=== PATIENT | female | born 1985 | race Caucasian/White ===

== ENCOUNTER → 2018-09-15 11:07 | Outpatient (CLI) | payer OTHER, SELFPAY ==
[2018-09-15 13:31] LABS: Chlamydia Trachomatis by PCR POSITIVE (Negative)
[2018-09-15 13:32] LABS: Neisserai gonorrhoeae by PCR Negative (Negative); Probe Check PASS
[2018-09-19 16:46] LABS: HPV APTIMA, High Risk Positive (Negative)
== END ==
PROVIDERS: Visit Provider Obstetrics & Gynecology
DX: Z12.4 Encounter for screening for malignant neoplasm of cervix (principal); Z11.3 Encounter for screening for infections with a predominantly sexual mode of transmission
CPT/HCPCS: 87491; 87591; 88175; G0145

== ENCOUNTER → 2018-10-06 15:48 | Outpatient (CLI) | payer OTHER, SELFPAY ==
[2018-10-06 17:42] LABS: Absolute Neutrophil Count 7.2 X10^3/uL (2.0-7.7); Basophil# 0.01 X10^3/uL; Basophil% 0.1 % (0-1); Eosinophil# 0.03 X10^3/uL; Eosinophils% 0.3 % (0-5); Hematocrit 37.1 % (37-47); Hemoglobin 12.7 g/dl (12.0-15.0); Mean Corp Hgb Conc 34.2 g/gl (32-36); Mean Corpuscular Hgb 31.8 pg (27.0-32.0); Mean Platelet Vol. 10.1 fl (6.2-12.0); Monocyte% 7.7 % (0-10); Neutrophil # 7.18 X10^3/uL (2.7-7.7); Neutrophil % 68.7 % (47-70); Platelet Count 209 K/mm3 (150-450); RBC Distribution Width CV 12.2 % (11.6-14.6); RBC Distribution Width SD 40.5 fl (35.1-43.9); Red Blood Count 3.99 M/mm3 (4.2-5.4); White Blood Count 10.4 K/mm3 (4.4-11.0)
[2018-10-06 17:44] LABS: POSITIVE COUNT NO; POSITIVE DIFFERENTIAL NO; POSITIVE MORPHOLOGY NO
[2018-10-06 17:47] LABS: Color, Urine Yellow (Yellow); Glucose, Dipstick Normal (Normal); Ketone-Dipstick Negative (Negative); Leukocyte Esterase-Dipstick Negative /ul (Negative); Nitrite-Dipstick Negative (Negative); Occult Blood-Urine Negative /ul (Negative); Protein-Dipstick Negative (Negative); Specific Gravity, Urine 1.025 (1.002-1.030); Urine Bilirubin Dipstick Negative (Negative); Urine Clarity Clear (Clear); Urine Urobilinogen Normal (Normal)
[2018-10-06 17:50] LABS: Amphetamine Urine VISTA NEGATIVE (<1000 ng/mL); Barbiturate Urine VISTA NEGATIVE (< 200 ng/mL); Benzodiazepine Urine VISTA NEGATIVE (< 200 ng/mL); Cocaine Urine VISTA NEGATIVE (< 300 ng/mL); Ecstacy Urine VISTA NEGATIVE (< 500 ng/mL); Methadone Urine VISTA NEGATIVE (< 300 ng/mL); PCP Urine VISTA NEGATIVE (< 25 ng/mL); THC Urine VISTA NEGATIVE (< 50 ng/mL); Vista UDS pH Range 6
[2018-10-06 17:57] LABS: Thyroid Stim Hormone (TSH) 1.01 uIU/mL (0.358-3.74)
[2018-10-06 18:39] LABS: HIV - WCH Non-Reactive (Nonreactive); Rubella IgG 36.8 IU/mL
[2018-10-07 01:11] LABS: Prenatal RPR NONREACTIVE (NONREACTIVE)
[2018-10-10 09:16] LABS: HEPATITIS B SURFACE AG Negative (Negative); Hep C Antibodies <0.1 s/co ratio (0.0-0.9)
== END ==
LOC: WOBLAB 15:48
PROVIDERS: Visit Provider Obstetrics & Gynecology
DX: Z34.81 Encounter for supervision of other normal pregnancy, first trimester (principal)
CPT/HCPCS: 36415; 80307; 81002; 84443; 85025; 86703; 86762; 86803; 87340

== ENCOUNTER 2018-11-04 09:53 | Day surgery (SDC) | payer OTHER, MEDICAID, SELFPAY ==
[2018-11-04 10:23] VITALS: BP 113/62; PULSE 83; RESP 14; TEMP 37.7; O2SAT 100; BMI 20.7
[2018-11-04 10:31] LABS: Hematocrit 44.9 % (37-47); Hemoglobin 14.7 g/dl (12.0-15.0); Mean Corp Hgb Conc 32.7 g/gl (32-36); Mean Corpuscular Hgb 30.8 pg (27.0-32.0); Mean Corpuscular Volume 93.9 fL (81-99); Mean Platelet Vol. 9.8 fl (6.2-12.0); Platelet Count 202 K/mm3 (150-450); RBC Distribution Width CV 12.5 % (11.6-14.6); RBC Distribution Width SD 43.3 fl (35.1-43.9); Red Blood Count 4.78 M/mm3 (4.2-5.4); White Blood Count 9.4 K/mm3 (4.4-11.0)
[2018-11-04 10:33] LABS: Scan Indicated on CBC? Y/N NO
--- NOTE | 2018-11-04 12:00 | POC_PTH ---
PATIENT: MEL VILLAR [place] [facility] [id number] AGE/SX: 32/F ROOM: RE11/04/[address]: Dr. Slava Hickman MD : 1985 BED: DIS: 11/04/2018 SPEC #: [id number] RECD: 11/04/18 13:59 STATUS: EULOGIO LAST #: [id number] CRISTHIAN: 11/04/18 12:[address]: Slava Hickman DEPT: SURGICAL PATHOLOGY RECD BY: Lupe Scott ENTERED: 11/04/18 14:46 SP TYPE: PROD CONC OTHR DR: No Primary Care Phys Tissues: Product of conception, NOS Procedures: Surgery Specimen Level IV HEADER OPERATION: Suction dilation and curettage PRE-OP DIAGNOSIS: Inevitable miscarriage TISSUE SUBMITTED: Products of conception MICROSCOPIC DIAGNOSIS Products of conception: [place], immature chorionic villi and tissue (products of conception). SJ:kathy 2/25/19 MICROSCOPIC DESCRIPTION Slides are reviewed. GROSS DESCRIPTION Received in fixative is one container labeled with the patient's name and designated products of conception. The specimen consists of multiple fragments of pink-red soft tissue that in aggregate measure 7 x 7 x 2 cm. A few macerated parts are also noted. Preparation Plant Supervisor tissue is submitted in two cassettes. Cassette 2 also contains the tissue. / SJ:kathy 11/04/18 TC:5 CPT: 97766
--- NOTE | 2018-11-04 12:37 | PCM.OPRPT ---
Report of Operation Date of Procedure: 11/04/18 Pre-Operative Diagnosis: Inevitable Miscarriage Post-Operative Diagnosis: Inevitable Miscarriage Surgery/Procedure Performed:: Suction Dilation and Evacuation Description of Surgical Findings:: 10 cm endometrial cavity with products of conception present. Type of Anesthesia:: MAC Anesthesiologist: Ovi Greer Specimen's removed: Products of conception Estimated Blood Loss (mL): Minimal Fluids Replaced: Crystalloid Description of Procedure: Surgeon: Slava Hickman MD, FACOG Indication: 32 Year old patient with incomplete AB at 12+ weeks gestation with a 9+ week IUP without FHTs. Pt has been counseled re RBAs and all questions answered. Procedure: Pt taken to the OR where she was given IV sedation. The patient was prepped and draped in the usual sterile fashion. Anterior cervix grasped and cervix dilated to 10mm. An 9 mm suction curette was inserted into the cervix and all contents removed. Uterus was gently curetted and remaining tissue removed. Pt tolerated the procedure well and was taken to the recovery room in satisfactory condition. Sponge, instruments and needle counts were all correct. There were no apparent complications of the surgery. Grafts/Implants Used: None - Complications None - Admit VTE Documentation VTE Present on Admission: Yes VTE Mechan Device Prophylaxis: SCD's VTE Pharm Prophylaxis ordered?: No Reason prophylaxis not ordered:: Treatment Not Indicated
--- NOTE | 2018-11-04 12:41 | OP.PCM_ITS ---
Report of Operation Date of Procedure: 11/04/18 Pre-Operative Diagnosis: Inevitable Miscarriage Post-Operative Diagnosis: Inevitable Miscarriage Surgery/Procedure Performed:: Suction Dilation and Evacuation Description of Surgical Findings:: 10 cm endometrial cavity with products of conception present. Type of Anesthesia:: MAC Anesthesiologist: Ovi Greer Specimen's removed: Products of conception Estimated Blood Loss (mL): Minimal Fluids Replaced: Crystalloid Description of Procedure: Surgeon: Slava Hickman MD, FACOG Indication: 32 Year old patient with incomplete AB at 12+ weeks gestation with a 9+ week IUP without FHTs. Pt has been counseled re RBAs and all questions answered. Procedure: Pt taken to the OR where she was given IV sedation. The patient was prepped and draped in the usual sterile fashion. Anterior cervix grasped and cervix dilated to 10mm. An 9 mm suction curette was inserted into the cervix and all contents removed. Uterus was gently curetted and remaining tissue removed. Pt tolerated the procedure well and was taken to the recovery room in sat isfactory condition. Sponge, instruments and needle counts were all correct. There were no apparent complications of the surgery. Grafts/Implants Used: None - Complications None - Admit VTE Documentation VTE Present on Admission: Yes VTE Mechan Device Prophylaxis: SCD's VTE Pharm Prophylaxis ordered?: No Reason prophylaxis not ordered:: Treatment Not Indicated
--- NOTE | 2018-11-04 12:42 | DCINST_ITS ---
Discharge Diet: No Restrictions Discharge Activity: Return to Normal Activity, May Shower, May Take a Tub Bath May resume sexual activity in: 2 weeks Call your doctor if you observe: Fever of 101 or Higher, Inability to urinate, Inability to have a bowel movement, Using more than one pad per hour Allergies/Adverse Reactions: Allergies No Known Allergies Allergy (Verified 11/04/18 10:17) Primary Care Physician: Care Physician,No Primary [Primary Care Provider] - Test Results: Test results from this visit will be discussed in further detail at your follow- up appointment, if applicable. Please Follow Up With: Slava Hickman MD When: 2-3 weeks
[2018-11-04 13:10] VITALS: BP 113/62; BP 116/69; PULSE 99; RESP 16; TEMP 36.5; O2SAT 96
[2018-11-04 13:15] VITALS: BP 113/62; BP 116/69; PULSE 78; RESP 16; O2SAT 99
[2018-11-04 13:20] VITALS: BP 108/64; BP 113/62; PULSE 82; RESP 16; O2SAT 97
[2018-11-04 13:28] VITALS: BP 113/62
[2018-11-04 13:34] VITALS: BP 102/68; BP 113/62; PULSE 82; RESP 16; TEMP 36.4; O2SAT 97
== END 2018-11-04 15:55 | disposition home or self-care (01) ==
LOC: SDC 09:58 → AC 09:59
PROVIDERS: Referring Provider Obstetrics & Gynecology; Visit Provider Obstetrics & Gynecology
PROC: (CPT 59812; principal; 2018-11-04 11:45)
DX: O03.4 Incomplete spontaneous abortion without complication (principal); J45.909 Unspecified asthma, uncomplicated; Z87.891 Personal history of nicotine dependence
CPT/HCPCS: 59812; 85027; 86850; 86900; 88305; J7120; J2405

== ENCOUNTER → 2019-04-06 17:20 | Outpatient (CLI) | payer OTHER, MEDICAID, SELFPAY ==
[2019-04-06 21:09] LABS: Chlamydia Trachomatis by PCR Negative (Negative); Neisserai gonorrhoeae by PCR Negative (Negative); Probe Check PASS; Sample Adequacy Control PASS; Specimen Processing Control PASS
== END ==
PROVIDERS: Referring Provider Obstetrics & Gynecology; Visit Provider Obstetrics & Gynecology
DX: R30.0 Dysuria (principal); R35.0 Frequency of micturition; Z11.3 Encounter for screening for infections with a predominantly sexual mode of transmission
CPT/HCPCS: 87086; 87088; 87491; 87591

== ENCOUNTER → 2019-07-12 16:52 | Outpatient (CLI) | payer OTHER, SELFPAY ==
[2019-07-12 20:19] LABS: Chlamydia Trachomatis by PCR Negative (Negative); Neisserai gonorrhoeae by PCR Negative (Negative); Probe Check PASS; Sample Adequacy Control PASS; Specimen Processing Control PASS
== END ==
PROVIDERS: Visit Provider Obstetrics & Gynecology
DX: Z11.3 Encounter for screening for infections with a predominantly sexual mode of transmission (principal)
CPT/HCPCS: 87491; 87591

== ENCOUNTER → 2019-08-18 15:43 | Outpatient (CLI) | payer OTHER, MEDICAID, SELFPAY ==
[2019-08-18 17:28] LABS: Absolute Lymphocyte Count 1.76 X10^3/uL (0.83-4.51); Absolute Neutrophil Count 8.6 X10^3/uL (2.0-7.7); Basophil# 0.02 X10^3/uL; Basophil% 0.2 % (0-1); Eosinophil# 0.03 X10^3/uL; Eosinophils% 0.3 % (0-5); Hematocrit 37.6 % (37-47); Hemoglobin 12.7 g/dL (12.0-15.0); Lymphocyte # 1.76 X10^3/ul (4.0); Lymphocyte % 15.8 % (19-41); Mean Corp Hgb Conc 33.8 g/dL (32-36); Mean Corpuscular Hgb 31.1 pg (27.0-32.0); Mean Corpuscular Volume 91.9 fL (81-99); Mean Platelet Vol. 9.6 fl (6.2-12.0); Monocyte# 0.69 X10^3/uL; Monocyte% 6.2 % (0-10); NRBC Flagged by Analyzer 0 % (0-5); Neutrophil # 8.59 X10^3/uL (2.7-7.7); Neutrophil % 77.2 % (47-70); Platelet Count 210 K/mm3 (150-450); RBC Distribution Width CV 11.7 % (11.6-14.6); RBC Distribution Width SD 39.5 fl (35.1-43.9); Red Blood Count 4.09 M/mm3 (4.2-5.4); White Blood Count 11.1 K/mm3 (4.4-11.0)
[2019-08-18 17:49] LABS: Color, Urine Yellow (Yellow); Glucose, Dipstick 100 mg/dl (Normal); Ketone-Dipstick Negative (Negative); Leukocyte Esterase-Dipstick Negative /ul (Negative); Nitrite-Dipstick Negative (Negative); Occult Blood-Urine 10 /ul (Negative); Protein-Dipstick 15 mg/dl (Negative); Specific Gravity, Urine 1.025 (1.002-1.030); Urine Bilirubin Dipstick Negative (Negative); Urine Clarity Clear (Clear); Urine Urobilinogen Normal (Normal)
[2019-08-18 17:56] LABS: Amphetamine Urine VISTA NEGATIVE (<1000 ng/mL); Barbiturate Urine VISTA NEGATIVE (< 200 ng/mL); Benzodiazepine Urine VISTA NEGATIVE (< 200 ng/mL); Cocaine Urine VISTA NEGATIVE (< 300 ng/mL); Ecstacy Urine VISTA NEGATIVE (< 500 ng/mL); Methadone Urine VISTA NEGATIVE (< 300 ng/mL); PCP Urine VISTA NEGATIVE (< 25 ng/mL); THC Urine VISTA NEGATIVE (< 50 ng/mL); Vista UDS pH Range 5
[2019-08-21 10:31] LABS: HIV - WCH Non-Reactive (Nonreactive); Hepatitis B Surface Antigen Non-Reactive (Nonreactive); Hepatitis C Antibody Non-Reactive (Nonreactive); Rubella IgG 34.3 IU/mL
[2019-08-24 01:49] LABS: Prenatal RPR NONREACTIVE (NONREACTIVE)
== END ==
PROVIDERS: Visit Provider Obstetrics & Gynecology
DX: Z34.81 Encounter for supervision of other normal pregnancy, first trimester (principal)
CPT/HCPCS: 36415; 80307; 81002; 84443; 85025; 86703; 86762; 86803; 87340

== ENCOUNTER → 2020-01-25 | Outpatient (CLI) | payer OTHER, MEDICAID, SELFPAY | END | disposition home or self-care (01) | LOC: LABSPEC 15:16 | PROVIDERS: Referring Provider Obstetrics & Gynecology; Visit Provider Obstetrics & Gynecology | DX: Z36.85 Encounter for antenatal screening for Streptococcus B (principal) | CPT/HCPCS: 87081 ==

== ENCOUNTER 2020-02-18 23:10 | Inpatient (IN) | payer OTHER, MEDICAID, SELFPAY ==
[2020-02-18 22:57] VITALS: BP 141/84; PULSE 108
[2020-02-18 22:59] VITALS: BP 141/84; PULSE 108; TEMP 36.7; O2SAT 98
[2020-02-18] MEDS: Lactated Ringers 1,000 ML 999 ML IV (23:25)
[2020-02-18 23:40] VITALS: BMI 27.6
[2020-02-18 23:50] LABS: Absolute Lymphocyte Count 2.11 X10^3/uL (0.83-4.51); Absolute Neutrophil Count 12.7 X10^3/uL (2.0-7.7); Basophil# 0.02 X10^3/uL; Basophil% 0.1 % (0-1); Eosinophil# 0.05 X10^3/uL; Eosinophils% 0.3 % (0-5); Hematocrit 36.1 % (37-47); Hemoglobin 12.2 g/dL (12.0-15.0); Lymphocyte # 2.11 X10^3/ul (4.0); Lymphocyte % 13.1 % (19-41); Mean Corp Hgb Conc 33.8 g/dL (32-36); Mean Corpuscular Hgb 31.1 pg (27.0-32.0); Mean Corpuscular Volume 92.1 fL (81-99); Mean Platelet Vol. 10.1 fl (6.2-12.0); Monocyte# 1.15 X10^3/uL; Monocyte% 7.1 % (0-10); NRBC Flagged by Analyzer 0 % (0-5); Neutrophil % 78.8 % (47-70); Platelet Count 180 K/mm3 (150-450); RBC Distribution Width CV 12.2 % (11.6-14.6); RBC Distribution Width SD 40.8 fl (35.1-43.9); Red Blood Count 3.92 M/mm3 (4.2-5.4); White Blood Count 16.1 K/mm3 (4.4-11.0)
[2020-02-19] VITALS (18 sets, daily range): BP systolic 101–135; BP diastolic 35–79; PULSE 92–111; RESP 12–18; TEMP 36.4–37.1; O2SAT 94–98
--- NOTE | 2020-02-19 00:06 | HP.PCM_ITS ---
- Problem List (1) 39 weeks gestation of Status: Acute History Date of Admission: 02/19/20 Final SAGE: 02/23/20 Gestational age: 39 Weeks and 3 Days History of this : This is a 34 year-old, G [3], P [1011], at 39 3/7 weeks gestational age with c/o painful contractions. hx prior section and is scheduled for repeat. Medical History: Medical History (Last Updated 02/19/20 @ 01:[address] Jaye Lackey MD) Anxiety F41.9 Surgical History: Surgical History (Last Updated 02/19/20 @ 00:[address] Jaye Lackey MD) H/O LEEP Z98.890 complicated by bleeding requiring reoperation H/O dilation and curettage Z98.890 Previous section Z98.891 Allergies No Known Allergies Allergy (Verified 11/04/18 10:17) Home Medications: Home Medications Acetaminophen [Tylenol] 325 mg PO PRN PRN 02/18/20 Calcium Carbonate [Tums] 200 mg PO PRN PRN 02/18/20 Vits [Prenatabs FA] 1 tab PO DAILY 02/18/20 Smoking Status: Former smoker Alcohol: None Number of Fetus(es): 1 NST - FHR Rate Baby A Baseline: 135 Accelerations:: 15 x 15 Decelerations:: None NST Reactive:: Yes FHR Category:: Category I Uterine Activity:: 1-2/10 min History Past Pregnancies: Past Pregnancies Delivery Date Name GA/ Weeks Outcome Route Wt Infant Sex Labor Length Anesthesia Delivery Location Provider FOB 01/2006 39 distress, face presentation LTCS 7lb8oz M 12 Epidural [facility] 10/2019 9 SAB D&C [facility] Labs: Mom's Problem List Problem Status Onset Code 39 weeks gestation of Acute Z3A.39 Mom's Labs & Results 02/18/20 02/18/20 23:25 23:25 WBC 16.1 H RBC 3.92 L Hgb 12.2 Hct 36.1 L MCV 92.1 MCH 31.1 MCHC 33.8 RDW Std Deviation 40.8 RDW Coeff of Koko 12.2 Plt Count 180 MPV 10.1 Immature Gran % (Auto) 0.600 Neut % (Auto) 78.8 H Lymph % (Auto) 13.1 L [place] % (Auto) 7.1 Eos % (Auto) 0.3 Baso % (Auto) 0.1 Absolute Neuts (auto) 12.7 H Absolute Lymphs (auto) 2.11 Nucleated RBC % 0 Blood Type Pending Antibody Screen Pending Course Did the patient receive Yes care? Labs Blood Type: O RH: NEGATIVE RPR/VDRL/Syphilis Nonreactive Rubella status Immune HbSAg Negative Date Done: 08/18/19 Chlamydia Negative Gonorrhea Negative HIV/AIDS Non-Reactive Group B Strep: Negative Social History Hx Smoking Yes Smoking Status Former smoker Expected Infant Delivery Method: DAE Section Number of Visits: 14 Physical Exam Vitals: Vital Signs Pulse BP 108 H 141/84 H 02/18/20 22:57 02/18/20 22:57 General: Alert, Oriented x3, Cooperative, No apparent distress HEENT: Atraumatic, Normocephalic Cardiovascular: Regular rate, Regular Rhythm, Normal S1, Normal S2 Lungs: Clear to auscultation, Normal air movement Abdomen: Soft, Non Tender, Non-Distended, Gravid Extremities:: No edema Neurological: Neuro grossly intact PRESS SETTER: Normal external genitalia Estimated gestational size: Appropriate for gestational size Presentation: Cephalic Cervix Dilation (cm): 3 Station: -2 Effacement (%): 90 - per ZANDRA Weller exam Assessment/Plan All Active Problems 39 weeks gestation of (Acute) This is a 34 year-old, G [3], P [1011], at 39 3/7 weeks gestational age, hx prior section -Reviewed with patient procedural r/b/i/a. Declines trial of labor. No plans for sterilization. -Proceed with section as planned Procedure Criteria Procedure Type: Essential Procedure Essential: Yes Criteria Statement: On 11/28/2019 the [facility] of Health ([facility]) Public Order signed by [facility] Director Yesi Bean M.D., regarding the Management of Non-Essential Surgeries and Procedures for the purpose of preserving Personal Protective Equipment (PPE) and critical hospital capacity and resources within [place] went into effect as of 11/29/2019 at 5:00PM. According to the [facility] Public Order: This action will remain in full force and effect until the State of Emergency declared by the Governor no longer exists or the Director of the [facility] rescinds or modifies this Order. This OD order stated all non-essential or elective surgeries and procedures that utilize PPE should be delayed unless there is undue risk to the current or future health of a patient. After reviewing the aforementioned [facility] Public Order and the patient's clinical case, I have determined that the scheduled procedure meets the criteria to go forward. Risk to Patient if Procedure Delayed: Threat to patient's life if surgery or procedure is delayed
[2020-02-19] MEDS: Lactated Ringers 1,000 ML 150 ML IV (00:29)
[2020-02-19] MEDS: Sodium Citrate/Citric Acid 30 ML UDC PO (00:36)
[2020-02-19] MEDS: Cefazolin 2 GM in 0.9% Normal Saline 100 ML IV (00:43)
--- NOTE | 2020-02-19 01:33 | OP.PCM_ITS ---
Problem List (1) 39 weeks gestation of Status: Acute Delivery Classification: DAE Final SAGE: 02/23/20 Final SAGE Source: [place] <20 weeks Gestational age: 39 Weeks and 3 Days knot tying operator: Durga Pedraza Type of Anesthesia:: Spinal Date of Procedure: 02/19/20 Pre-Operative Diagnosis: 1. 39 3/7wga. 2. prior section. 3. declines TOLAC Post-Operative Diagnosis: same Indications: 34-year-old 3 para 1-0-1-1 presenting at 39-3/7 weeks gestational age in labor. Patient had plan for a scheduled repeat section. Procedural risks, benefits, indications and alternatives were reviewed at length and patient desired to proceed and declined trial of labor. Indications for : Repeat Elective Description of Procedure: The patient was taken to the operating room and spinal analgesia was administered. She is placed in a dorsal supine position with left lateral tilt. The perineum and abdomen were prepped and draped in sterile fashion. And the spinal was found to be adequate. A Pfannenstiel incision was made using a scalpel and brought down to incise the subcutaneous tissue and rectus fascia at the midline. Subcutaneous tissue was bluntly dissected off the fascia laterally. The fascial incision was dissected laterally and cephalad using curved Villagran scissors. The superior leaflet of the rectus fascia was grasped using Enrico clamps and bluntly dissected and sharply dissected from the underlying rectus muscle. In a similar fashion the inferior rectus fascia was dissected from the underlying muscle. The rectus muscles were bluntly at the midline. The peritoneum was identified and entered [sharply]. The bladder blade was placed into the abdomen and the vesicouterine peritoneal fold identified. The fold was incised and a bladder flap created. Bladder blade was then repositioned to the abdomen. A low transverse hysterotomy was made using the [Metzenbaum scissors] to level of the membranes. The hysterotomy was ex tended bluntly cephalad and caudad. The membranes were then ruptured revealing clear fluid. The head was elevated and brought to the level of the hysterotomy and the delivered revealing vigorous [female] . The cord was doubly clamped and cut after 30 seconds. The infant was passed to awaiting [nursery personnel]. The placenta was [expressed] from the uterus and appeared intact on inspection. The uterus was cleared of debris. The hysterotomy was then repaired using 0 Vicryl running lock suture. A second imbricating layer was also placed for additional hemostasis. The bladder blade was removed. The anterior cul-de-sac was cleared of debris. The peritoneum and rectus muscles were reapproximated using 2-0 Vicryl running suture. The rectus fascia was closed using 0 Vicryl running suture. The subcutaneous tissue was sponge irrigated and small capillary bleeding controlled using the Bovie device. The subcutaneous tissue was reapproximated using 2-0 Vicryl. The skin was closed using 4-0 Monocryl subcuticularly by the HOUSEKEEPING ROOM ATTENDANT under my supervision. a Mepilex occlusive dressing was placed over the incision. The fundus was firm. The patient was then transferred to the recovery room without complication. Sponge, instrument, and needle counts were correct ?2. Amniotic Membrane Rupture Type: Artificial Amniotic Fluid Description: Clear Placenta Disposition: [facility] Drain: Concepcion to straight drain Fluids Replaced: 1000 ml Cord Entanglement: Around neck x 1, loose Nuchal Cord Compression: Without compression Cord Vessel Description: 3 Vessels Esitmated Blood Loss (ml): 800 Infant Gender: Female (1 minute): 9 (5 minute): 9 Delayed cord clamping: Yes Antibiotic Given: Ancef 2 grams IV x1 Pt instructed on risks of surgery: Bleeding, Anesthesia Risks, Infection, Need for Future C-Sections, Injury to surrounding structure(s) including bowel and bladder Complications: None - Admit VTE Documentation VTE Present on Admission: No VTE Mechan Device Prophylaxis: SCD's VTE Pharm Prophylaxis ordered?: No
[2020-02-19 01:45] LABS: Probe Check PASS; Specimen Processing Control PASS
[2020-02-19] MEDS: Oxytocin 30 units/NS 500 ml 30 UNITS/500 ML IV.SOLN 167 UNITS IV (01:55)
--- NOTE | 2020-02-19 02:12 | NURSING ---
Some clots expressed at this time. RN will continue to monitor pt closely.
--- NOTE | 2020-02-19 02:18 | NURSING ---
Dr. Leyva in room and notified of pt BP. RN to continue current plan of care.
--- NOTE | 2020-02-19 04:01 | NURSING ---
indwelling urinary catheter as pt post op
--- NOTE | 2020-02-19 04:13 | NURSING ---
0330- This RN brought double breast pump into room. Instructed pt. about pump parts, how to pump, pump settings, how to assess nipple fit, and how to clean pump. Pt. pumped for 15 minutes. 2cc of colostrum expressed and gathered, then placed in breastmilk fridge until 's next feed.
[2020-02-19] MEDS: DiphenhydrAMINE 25 MG Capsule PO (05:03)
[2020-02-19] MEDS: Lactated Ringers 1,000 ML 100 ML IV (05:28)
[2020-02-19] MEDS: Ketorolac 30 MG/ML Syringe IV ×3 (07:40→18:13)
[2020-02-19] MEDS: 0.9% Saline Lock 10 ML Syringe IV ×4 (07:40→18:13)
[2020-02-19] MEDS: Senna/Docusate Sodium 1 Tablet PO (12:58)
[2020-02-19] MEDS: Enoxaparin 40 MG/0.4 ML Syringe SC (13:00)
[2020-02-19] MEDS: oxyCODONE 5 MG Tablet PO ×3 (14:58→23:52)
[2020-02-19] MEDS: Acetaminophen 500 MG Tablet 1000 MG PO (22:53)
[2020-02-20] VITALS: BP 117/76; PULSE 100; RESP 14; TEMP 36.6; O2SAT 98
[2020-02-20] MEDS: Ketorolac 30 MG/ML Syringe IV ×5 (00:06→23:23)
[2020-02-20] MEDS: 0.9% Saline Lock 10 ML Syringe IV ×6 (00:06→23:23)
--- NOTE | 2020-02-20 03:23 | NURSING ---
RN in room for hourly rounding. Patient states she attempted to void after showering but could not. Patient was grimacing and rated pain 10/10 for abdominal cramping. Patient also stated she accidentally pulled her IV out while drying off after her shower. Patient was catheterized previously at 1800 for 900ml. This RN decided to straight catheterize patient since it had been 4 hours since last void. Called Kalani RN to room to help. Urine return of 350ml. Patient restated her pain was 10/10. Patient was not due for any pain meds other than Tylenol. After evaluating MAR and given patient's removal of IV, Carmen MINERM was called. Carmen stated to reinsert IV and continue with current pain management regimen, and to straight cath the patient again over night if needed. Carmen stated a physician would be on unit in the morning to evaluate patient. Tylenol given to patient per order and pain was reassessed. patient stated after voiding and pain medication, pain was a 7-8/10. This RN gave oxyir and Toradol per order. Pain reassessed and patient stated pain was a 2/10. Patient was able to void 300ml on her own. Will continue to monitor.
[2020-02-20 04:00] VITALS: BP 110/65; PULSE 99; RESP 16; TEMP 36.3
[2020-02-20] MEDS: oxyCODONE 5 MG Tablet PO ×4 (04:12→22:03)
[2020-02-20 06:22] LABS: Hematocrit 34.1 % (37-47); Hemoglobin 11.4 g/dL (12.0-15.0); Mean Corp Hgb Conc 33.4 g/dL (32-36); Mean Corpuscular Hgb 31.8 pg (27.0-32.0); Mean Corpuscular Volume 95.3 fL (81-99); Mean Platelet Vol. 9.7 fl (6.2-12.0); Platelet Count 162 K/mm3 (150-450); RBC Distribution Width CV 12.8 % (11.6-14.6); RBC Distribution Width SD 44.3 fl (35.1-43.9); Red Blood Count 3.58 M/mm3 (4.2-5.4); White Blood Count 12.5 K/mm3 (4.4-11.0)
[2020-02-20] MEDS: Acetaminophen 500 MG Tablet 1000 MG PO ×2 (07:34→15:39)
[2020-02-20] MEDS: Senna/Docusate Sodium 1 Tablet PO (07:34)
[2020-02-20 07:35] VITALS: BP 124/79; PULSE 90; RESP 16; TEMP 36.6; O2SAT 99
--- NOTE | 2020-02-20 08:05 | PCM.PN.OB ---
Patient Problems: Active and Suspected Problems (Last Updated 02/19/20 @ 01:[address] Jaye Lackey MD) 39 weeks gestation of (Acute) Subjective: Patient without complaints. Tolerating diet well. Denies flatus. Pain control initially difficult but with added Demerol was well controlled. Ready to discontinue the Demerol at this point. Objective: Mepilex dressing is clean, dry, with wound apparently intact. Hemoglobin okay. Afebrile with stable vital signs. Patient resting comfortably denying pain at present. - Physical Exam Vitals/I&O's: Vital Signs Temp Pulse Resp BP Pulse Ox 97.9 F 90 16 124/79 H 99 02/20/20 07:35 02/20/20 07:35 02/20/20 07:35 02/20/20 07:35 02/20/20 07:35 Oxygen Delivery Method Room Air Weight: 176 lb 3.2 oz Body Mass Index (BMI) 27.6 Intake and Output for Last 24 Hours 02/18/20 02/19/20 02/20/20 23:59 23:59 23:59 Intake Total 3658.33 / 3658.33 Output Total 2300 / 2300 650 / 650 Balance 1358.33 / 1358.33 -650 / -650 Laboratory Results 02/20/20 06:05: WBC 12.5 H, RBC 3.58 L, Hgb 11.4 L, Hct 34.1 L, MCV 95.3, MCH 31.8, MCHC 33.4, RDW Std Deviation 44.3 H, RDW Coeff of Koko 12.8, Plt Count 162, MPV 9.7 Current Medications Acetaminophen (Tylenol) 1,000 mg PO Q8H PRN PRN Reason: Pain Score 1-3/10 Last Admin: 02/20/20 07:34 Dose: 1,000 mg Documented by: Bisacodyl (Dulcolax) 10 mg RECTAL UD PRN PRN Reason: If no BM Hydrocortisone (Hytone) 1 applic TOPICAL TID PRN PRN; Protocol PRN Reason: Discomfort Naloxone HCl 4 mg/ Dextrose 504 mls @ 0 mls/hr IV .Q0M PRN; Protocol PRN Reason: Respiratory depression Ketorolac Tromethamine (Toradol (Bkc)) 30 mg IV Q6H NHUNG Stop: 02/21/20 00:01 Last Admin: 02/20/20 06:03 Dose: 30 mg Documented by: Meperidine HCl (Demerol) 25 mg IV Q2H PRN PRN PRN Reason: RIGORS Last Admin: 02/19/20 12:04 Dose: 25 mg Documented by: Methylergonovine Maleate (Methergine) 0.2 mg IM X1 PRN PRN Reason: Uterine Atony Naloxone HCl (Narcan) 0.02 mg IV Q1M PRN PRN Reason: RR <10 and pt unresponsive Ondansetron HCl (Zofran) 4 mg IV Q4H PRN PRN PRN Reason: Nausea Oxycodone HCl (Oxyir) 5 - 10 mg PO Q4H PRN PRN PRN Reason: Pain Score 4-10/10 Last Admin: 02/20/20 04:12 Dose: 10 mg Documented by: Prochlorperazine Edisylate (Compazine Iv) 10 mg IV Q6H PRN PRN PRN Reason: NAUSEA Senna/Docusate Sodium (Senokot-S, Ana-Colace) 0 tablet PO DAILY PRN PRN Reason: Constipation Last Admin: 02/20/20 07:34 Dose: 1 tablet Documented by: Simethicone (Mylicon) 80 mg PO PCHS PRN PRN Reason: Indigestion/stomach pain Last Admin: 02/20/20 07:53 Dose: 80 mg Documented by: Sodium Chloride () 5 - 15 ml IV UD PRN PRN Reason: SALINE FLUSH Last Admin: 02/20/20 06:18 Dose: 10 ml Documented by: Medical Necessity - Tobacco Use Smoking Status: Former smoker Assessment/Plan All Active Problems (Last Updated 02/19/20 @ 01:[address] Jaye Lackey MD) 39 weeks gestation of (Acute) Doing well postoperative day #1 status post repeat . Will discontinue Demerol IV but continue Toradol IV for another 24 hours. Continuing present care otherwise.
[2020-02-20 13:31] VITALS: BP 121/75; PULSE 82; RESP 16; TEMP 36.3
[2020-02-20] MEDS: Ondansetron 4 MG/2 ML Vial IV (18:04)
--- NOTE | 2020-02-20 18:35 | NURSING ---
Pt with c/o increased cramping pain. states that incision pain is fine but cramping is 7/10. this RN medicated with scheduled pain meds. focused assessment done, all WNL, vitals taken. Pt also stated that feeling nauseous. this RN medicated with zofran. Morales on unit and this RN updated on pt pain, assessment and vitals. no new orders at this time.
[2020-02-20 20:45] VITALS: BP 125/88; PULSE 90; RESP 18; TEMP 36.3
[2020-02-21 02:55] VITALS: BP 131/85; PULSE 88; RESP 18; TEMP 36.2
[2020-02-21] MEDS: Acetaminophen 500 MG Tablet 1000 MG PO (04:38)
[2020-02-21] MEDS: oxyCODONE 5 MG Tablet PO (04:39)
[2020-02-21 08:18] VITALS: BP 123/82; PULSE 91; RESP 16; TEMP 37.1; O2SAT 99
[2020-02-21] MEDS: Ibuprofen 600 MG Tablet PO (08:28)
[2020-02-21] MEDS: Senna/Docusate Sodium 1 Tablet PO (08:28)
--- NOTE | 2020-02-21 08:53 | DCINST_ITS ---
Discharge Diet: No Restrictions Discharge Activity: May Not Drive - for 2 weeks or while taking narcotic pain meds., May Shower, May Take a Tub Bath - in 7 days. May resume sexual activity in: 4-6 weeks Lifting Restrictions: 20 pounds Additional Activity Instructions:: Nothing in the vagina for 4-6 weeks. You may return to work/school in 6 weeks. Call your doctor if your incision/area has: Continuous Slow Oozing, Sudden Increased Bleeding, Increased Pain/ Swelling, Increased Redness, Foul Smelling Discharge Call your doctor if you observe: Fever of 101 or Higher Suture Line Care: Avoid Pulling/Pushing, Avoid Pinching/Bending Additional Instructions: If you experience any of the following, contact your healthcare provider. * Bleeding that soaks a pad every hour for 2 hours * Fever 100.4 or higher * Unrelieved incision or abdominal pain * Swelling, redness, discharge or bleeding from your incision or episiotomy site * Your incision begins to separate * Problems urinating (including inability to urinate or burning while urinating). * Visual changes * Severe headache * Flu-like symptoms * Pain or redness in one of both of your breasts * Pain, warmth, tenderness or swelling in your legs, especially the calf area * Frequent nausea and vomiting * Symptoms of depression or anxiety If you experience any of the following, call 911 or go to the nearest Emergency Room. * Chest pain * Problems breathing * Seizure activity * Partial or complete paralysis of a body part, slurred speech, weakness or drooping of the face, or a sudden inability to walk or hold your balance Allergies/Adverse Reactions: Allergies No Known Allergies Allergy (Verified 11/04/18 10:17) Medications to take at Discharge Acetaminophen [Tylenol] 325 mg PO PRN PRN 02/18/20 Calcium Carbonate [Tums] 200 mg PO PRN PRN 02/18/20 Vits [Prenatabs FA] 1 tab PO DAILY 02/18/20 Ibuprofen [Motrin] 600 mg PO Q6H PRN PRN tablet 02/21/20 Oxycodone [Oxyir] 5 - 10 mg PO Q4H PRN PRN 3 Days #10 tablet 02/21/20 Senna/Docusate Sodium [Senokot-S] 1 tab PO DAILY PRN #30 tab 02/21/20 The following prescriptions were given: Oxycodone [Oxyir] 5 - 10 mg PO Q4H PRN PRN 3 Days #10 tablet PRN Reason: Pain Score 4-10/10 Transmission Status: Received by [id number] Senna/Docusate Sodium [Senokot-S] 1 tab PO DAILY PRN #30 tab PRN Reason: Constipation Transmission Status: Pending to [id number] Follow-Up: Call to make an appointment with your doctor for an incision check in 1-2 weeks. You will also need a 6 week post- follow up appointment. Test results from this visit will be discussed in further detail at your follow- up appointment, if applicable. Please Follow Up With: Slava Hickman MD Primary Care Physician: Care Physician,No Primary [Primary Care Provider] -
--- NOTE | 2020-02-21 08:58 | PCM.PN.OB ---
Subjective: Feeling a lot better pain ward and would like to discharge. Denies heavy bleeding or pain. Wants to take dressing off at home. Objective: VSS. Fundus u/2, firm, midline. Dressing CDI. Lochia rubra scant - Physical Exam Vitals/I&O's: Vital Signs Temp Pulse Resp BP Pulse Ox 98.7 F 91 16 123/82 H 99 02/21/20 08:18 02/21/20 08:18 02/21/20 08:18 02/21/20 08:18 02/21/20 08:18 Oxygen Delivery Method Room Air Weight: 79.923 kg Body Mass Index (BMI) 27.6 Intake and Output for Last 24 Hours 02/19/20 02/20/20 02/21/20 23:59 23:59 23:59 Intake Total 3658.33 / 3658.33 Output Total 2300 / 2300 1400 / 1400 Balance 1358.33 / 1358.33 -1400 / -1400 General: Alert, Oriented x3, Cooperative HEENT: Atraumatic, PERRLA, EOMI, Normocephalic Neck: Supple, No JVD, Negative Carotid Bruits Lungs: Clear to auscultation, Normal air movement Cardiovascular: Regular rate, No murmurs Abdomen: Bowel Sounds Present, Soft, Non Tender Extremities: No edema, Capillary Refill Less than 3 Seconds Skin: No rashes, No breakdown Musculoskeletal: No Tenderness to Palpation of Joints or Extremities Neurological: Cranial nerves II-XII grossly intact Psych/Mental Status: Normal Affect, Appropriate Current Medications Acetaminophen (Tylenol) 1,000 mg PO Q8H PRN PRN Reason: Pain Score 1-310 Last Admin: 02/21/20 04:38 Dose: 1,000 mg Documented by: Bisacodyl (Dulcolax) 10 mg RECTAL UD PRN PRN Reason: If no BM Hydrocortisone (Hytone) 1 applic TOPICAL TID PRN PRN; Protocol PRN Reason: Discomfort Naloxone HCl 4 mg/ Dextrose 504 mls @ 0 mls/hr IV .Q0M PRN; Protocol PRN Reason: Respiratory depression Ibuprofen (Motrin) 600 mg PO Q6H PRN PRN PRN Reason: Pain Score 1-3/10 Last Admin: 02/21/20 08:28 Dose: 600 mg Documented by: Methylergonovine Maleate (Methergine) 0.2 mg IM X1 PRN PRN Reason: Uterine Atony Naloxone HCl (Narcan) 0.02 mg IV Q1M PRN PRN Reason: RR <10 and pt unresponsive Ondansetron HCl (Zofran) 4 mg IV Q4H PRN PRN PRN Reason: Nausea Last Admin: 02/20/20 18:04 Dose: 4 mg Documented by: Oxycodone HCl (Oxyir) 5 - 10 mg PO Q4H PRN PRN PRN Reason: Pain Score 4-10/10 Last Admin: 02/21/20 04:39 Dose: 5 mg Documented by: Prochlorperazine Edisylate (Compazine Iv) 10 mg IV Q6H PRN PRN PRN Reason: NAUSEA Senna/Docusate Sodium (Senokot-S, Ana-Colace) 0 tablet PO DAILY PRN PRN Reason: Constipation Last Admin: 02/21/20 08:28 Dose: 2 tablet Documented by: Simethicone (Mylicon) 80 mg PO PCHS PRN PRN Reason: Indigestion/stomach pain Last Admin: 02/20/20 07:53 Dose: 80 mg Documented by: Sodium Chloride () 5 - 15 ml IV UD PRN PRN Reason: SALINE FLUSH Last Admin: 02/20/20 23:23 Dose: 10 ml Documented by: Medical Necessity - Tobacco Use Smoking Status: Former smoker Assessment/Plan All Active Problems (Last Updated 02/19/20 @ 01:[address] Jaye Lackey MD) 39 weeks gestation of (Acute) A/P: POD #2 S/P Repeat Csection Pain management issues are getting better with oral medication Denies any questions or concerns Continue routine PP orders Discharge if wishing, will decide later
== END 2020-02-21 11:20 | disposition home or self-care (01) | DRG 788 ==
LOC: OBT 23:14 → WP 23:14
PROVIDERS: Admitting Provider Obstetrics & Gynecology; Referring Provider Obstetrics & Gynecology; Visit Provider Obstetrics & Gynecology
DX: O34.211 Maternal care for low transverse scar from previous cesarean delivery (principal); O69.81X0 Labor and delivery complicated by cord around neck, without compression, not applicable or unspecified; Z3A.39 39 weeks gestation of pregnancy; Z37.0 Single live birth
CPT/HCPCS: 59025; 59050; 85025; 85027; 85461; 86850; 86900; 86901; 87635; 90384; 99218; G2023; J7120; A4216; G0378; J2405; J2790; U0003

== ENCOUNTER → 2020-03-25 | Outpatient (CLI) | payer OTHER, MEDICAID, SELFPAY ==
[2020-03-25 17:58] LABS: Internal QC Validated? YES +Cl - CLEAR BKGD; Pregnancy, Serum, hCG Quali. NEGATIVE Negative
[2020-03-25 18:01] LABS: Progesterone Level 0.23 ng/mL (See Comment)
== END | disposition home or self-care (01) ==
LOC: WOBLAB 16:55
PROVIDERS: Visit Provider Obstetrics & Gynecology
DX: Z30.430 Encounter for insertion of intrauterine contraceptive device (principal)
CPT/HCPCS: 36415; 84144; 84703

== ENCOUNTER → 2020-12-18 | Outpatient (CLI) | payer OTHER, MEDICAID, SELFPAY | END | disposition home or self-care (01) | LOC: LABSPEC 11:02 | PROVIDERS: Visit Provider Obstetrics & Gynecology | DX: N39.0 Urinary tract infection, site not specified (principal) | CPT/HCPCS: 87086; 87088; 87186 ==